=== PATIENT | male | born 1945 | race Caucasian/White ===

== ENCOUNTER 2018-07-28 06:36 | Day surgery (SDC) | payer MEDICARE, OTHER, BC ==
[2018-07-28] MEDS ORDERED: Lactated Ringers 1,000 ML IV SCH (07:00)
[2018-07-28] MEDS ORDERED: fentaNYL 100 MCG/2 ML SDV ONE (07:20)
[2018-07-28] MEDS ORDERED: Propofol 200 MG/20 ML SDV ONE (07:20)
[2018-07-28] MEDS ORDERED: Midazolam 1 MG/ML 2 ML SDV ONE (07:20)
[2018-07-28 08:57] VITALS: BP 148/87
--- NOTE | 2018-07-28 11:01 | OR ---
DATE OF PROCEDURE: 07/28/2018 PREOPERATIVE DIAGNOSIS: History of adenomatous colon polyps. POSTOPERATIVE DIAGNOSES: History of adenomatous colon polyps, unremarkable colonoscopy. PROCEDURE: Colonoscopy to the cecum. SURGEON: Donnie Alvarez MD ANESTHESIA: IV anesthesia with monitored anesthesia care. INDICATION: This 72-year-old white male is here for a colonoscopy. He has a history of colon polyps. In 2014, he underwent resection of his splenic flexure because of an endoscopically unresectable tubulovillous adenoma. He is here for followup colonoscopy. I counseled him for the procedure including risks and alternatives, and he gave his informed consent to proceed. PROCEDURE IN DETAIL: The patient was placed in the left lateral decubitus position. IV anesthesia was administered by the Anesthesia Service. Time-out was held. A rectal exam was performed which was unremarkable. The flexible video Olympus colonoscope was introduced through his anus, up his rectum, out his colon, all way to the cecum. Once the cecum was reached, the scope was slowly withdrawn examining the mucosa throughout. No mucosal abnormalities were noted. The anastomosis looked well with no evidence of local recurrence. The scope was retroflexed in the rectum with the distal rectum appearing unremarkable. The scope was straightened and removed. He tolerated the procedure well. Donnie Alvarez MD /[id number]
== END 2018-07-28 09:00 | disposition home or self-care (01) ==
LOC: JP.SDS 06:36
PROVIDERS: ATTEND Surgery
DX: Z12.11 Encounter for screening for malignant neoplasm of colon (principal); I10 Essential (primary) hypertension; E11.9 Type 2 diabetes mellitus without complications; C61 Malignant neoplasm of prostate; K21.9 Gastro-esophageal reflux disease without esophagitis; E78.5 Hyperlipidemia, unspecified; Z86.010 Personal history of colon polyps; Z90.49 Acquired absence of other specified parts of digestive tract; Z88.8 Allergy status to other drugs, medicaments and biological substances; Z88.5 Allergy status to narcotic agent
CPT/HCPCS: G0105; J2250; J2704; J3010; J7120

== ENCOUNTER 2022-08-08 06:29 | Day surgery (SDC) | payer BC, MEDICARE, OTHER ==
[2022-08-08] MEDS ORDERED: Lactated Ringers 1,000 ML IV SCH (07:00)
[2022-08-08] MEDS ORDERED: fentaNYL 100 MCG/2 ML SDV ONE (07:16)
[2022-08-08] MEDS ORDERED: Propofol 200 MG/20 ML SDV ONE (07:16)
[2022-08-08 09:02] VITALS: BP 144/75; PULSE 64
== END 2022-08-08 09:06 | disposition home or self-care (01) ==
LOC: JP.SDS 06:29
PROVIDERS: ATTEND Student in an Organized Health Care Education/Training Program
DX: Z12.11 Encounter for screening for malignant neoplasm of colon (principal); I10 Essential (primary) hypertension; E78.5 Hyperlipidemia, unspecified; K21.9 Gastro-esophageal reflux disease without esophagitis; I25.10 Atherosclerotic heart disease of native coronary artery without angina pectoris; E11.9 Type 2 diabetes mellitus without complications; I65.23 Occlusion and stenosis of bilateral carotid arteries; Z86.010 Personal history of colon polyps; Z79.899 Other long term (current) drug therapy; Z88.0 Allergy status to penicillin; Z88.1 Allergy status to other antibiotic agents; Z88.8 Allergy status to other drugs, medicaments and biological substances; Z88.5 Allergy status to narcotic agent
CPT/HCPCS: J2704; J3010; J7120

== ENCOUNTER 2023-09-03 06:58 | Day surgery (SDC) | payer MEDICARE ==
[2023-09-03] MEDS ORDERED: fentaNYL 100 MCG/2 ML SDV ONE (07:25)
[2023-09-03] MEDS ORDERED: Propofol 200 MG/20 ML SDV ONE (07:25)
[2023-09-03] MEDS ORDERED: Lactated Ringers 1,000 ML IV SCH (07:30)
[2023-09-03] MEDS: Dextrose 5%-Lactated Ringers 1,000 ML IV SCH (08:09)
[2023-09-03 09:14] VITALS: BP 145/80; PULSE 67
== END 2023-09-03 09:18 | disposition home or self-care (01) ==
LOC: JP.SDS 06:58
PROVIDERS: ATTEND Family Medicine
DX: Z12.11 Encounter for screening for malignant neoplasm of colon (principal); I10 Essential (primary) hypertension; E11.9 Type 2 diabetes mellitus without complications; E78.5 Hyperlipidemia, unspecified; Z79.899 Other long term (current) drug therapy; Z88.8 Allergy status to other drugs, medicaments and biological substances
CPT/HCPCS: 45378; J2704; J3010; J7121

== ENCOUNTER 2024-08-27 07:00 | Day surgery (SDC) | payer MEDICARE, OTHER ==
[2024-08-27] MEDS: Lactated Ringers 1,000 ML IV SCH (07:22)
[2024-08-27] MEDS ORDERED: Propofol 200 MG/20 ML SDV ONE (07:26)
[2024-08-27] MEDS ORDERED: fentaNYL 50 MCG/ML SDV ONE (07:26)
[2024-08-27 09:27] VITALS: BP 155/86; PULSE 66
== END 2024-08-27 09:27 | disposition home or self-care (01) ==
LOC: JP.SDS 07:00
PROVIDERS: ATTEND Surgery
DX: R10.9 Unspecified abdominal pain (principal); K21.9 Gastro-esophageal reflux disease without esophagitis; E11.42 Type 2 diabetes mellitus with diabetic polyneuropathy; E78.00 Pure hypercholesterolemia, unspecified; I25.10 Atherosclerotic heart disease of native coronary artery without angina pectoris; I10 Essential (primary) hypertension
CPT/HCPCS: 00731; 43239; 43251; J2704; J3010; J7120